=== PATIENT | female | born 1985 | race Two or more races ===

== ENCOUNTER 2022-07-25 10:03 | Emergency (ER) | payer MEDICAID ==
[~2022-07-25] VITALS: Ht 162.6 cm; Wt 98.8 kg
[2022-07-25 10:16] VITALS: BP 138/60
[2022-07-25 10:49] LABS: Basophils # (auto) 0 10 ^3/uL (0-0.2); Basophils % (auto) 0.6 % (0.0-2.0); Eosinophils # (auto) 0.1 10 ^3/uL (0-0.8); Eosinophils % (auto) 0.8 % (0.0-7.0); Hematocrit 42.1 % (36.0-46.0); Hemoglobin 13.8 g/dL (12.2-16.2); Lymphocytes # (auto) 2.4 10 ^3/uL (0.4-5.4); Lymphocytes % (auto) 31.1 % (10.0-50.0); Mean Corpuscular Hemoglobin 31.6 pg (28.0-32.0); Mean Corpuscular Hgb Conc. 32.9 g/dL (32.0-36.0); Mean Corpuscular Volume 96.1 fL (80.0-100.0); Monocytes # (auto) 0.5 10 ^3/uL (0-1.3); Monocytes % (auto) 6.6 % (0.0-12.0); Neutrophils # (auto) 4.7 10 ^3/uL (1.6-8.6); Neutrophils % (auto) 60.9 % (37.0-80.0); Red Blood Cells 4.38 10^6/uL (4.0-5.20); Red Cell Distribution Width 13.5 % (11.8-14.3); White Blood Cell 7.8 10^3/uL (4.4-10.8)
[2022-07-25 11:03] LABS: Albumin 3.6 g/dL (3.4-5.0); Calcium 8.4 mg/dL (8.5-10.1)
[2022-07-25 11:08] LABS: BUN/Creatinine Ratio 13.8; Bilirubin, Total 0.6 mg/dL (0.2-1.0); Total Protein 7.4 g/dL (6.4-8.2)
[2022-07-25 11:11] LABS: Urine Bacteria FEW /hpf (None Seen); Urine Blood TRACE /uL (Negative); Urine Specific Gravity 1.014 (1.001-1.035); Urine WBC <1 /hpf (0 - 5)
== END 2022-07-25 13:19 | disposition home or self-care (01) ==
LOC: ER 10:03
DX: R10.9 Unspecified abdominal pain (principal); Z87.442 Personal history of urinary calculi
CPT/HCPCS: 36415; 74176; 80053; 81001; 85025

== ENCOUNTER 2025-10-28 17:25 | Emergency (ER) | payer MEDICAID ==
[~2025-10-28] VITALS: Ht 162.6 cm; Wt 93.1 kg
[2025-10-28 17:28] VITALS: TEMP 97.6
--- NOTE | 2025-10-28 18:09 | ED.PDOC ---
History of Present Illness HPI Comments 40F presents to the ER w/ the c/c of RAM. Pt reports on cooking when she had a sharp burning sensation to the head for which she thought was the oil but when the pt sat down after cooking she had the same feeling. The pt states on having had felt N/ and about to "faint". Pt notes on also having had "gibberish speech" which has been on/off for "a while". Denies any symptoms at this time. Patient denies any CP, SOB, dizziness, numbness, weakness, tingling, fever, chills, or recent fall. Chief Complaint: Headache Time Seen by MD: 18:00 Reviewed Notes: Nurses Notes, Medications, Allergies Allergies: Coded Allergies: NO KNOWN ALLERGIES (Unverified , 07/25/22) Information Source: Patient Mode of Arrival: Ambulatory Severity: Moderate Timing: Came on: Gradually Duration: Since onset Prehospital treatment: None Past Medical History PAST MEDICAL HISTORY: Kidney Stones Surgical History: Denies all surgeries SIGNAL MECHANIC History: No Pertinent SIGNAL MECHANIC History Family History Family History: Reviewed,noncontributory to illness, Unknown Social History Smoker: Non-Smoker Alcohol: Denies ETOH Use Drugs: Denies Drug Use Lives In: Home Constitutional: reports: others (faint); denies: chills, diaphoresis, fatigue, fever, malaise, sweats, weakness EENTM: denies: blurred vision, double vision, ear bleeding, ear discharge, ear drainage, ear pain, ear ringing, eye pain, eye redness, hearing loss, mouth pain, mouth swelling, nasal discharge, nose bleeding, nose congestion, nose pain , photophobia, tearing, throat pain, throat swelling, voice changes, others Respiratory: denies: cough, hemoptysis, orthopnea, SOB at rest, shortness of breath, SOB with excertion, stridor, wheezing, others Cardiovascular: denies: chest pain, dizzy spells, diaphoresis, Dyspnea on exertion, edema, irregular heart beat, left arm pain, lightheadedness, palpitations, PND, syncope, others Gastrointestinal: reports: nausea; denies: abdomen distended, abdominal pain, blood streaked bowels, constipated, diarrhea, dysphagia, difficulty swallowing, hematemesis, melena, poor appetite, poor fluid intake, rectal bleeding, rectal pain, vomiting, others Genitourinary: denies: abnormal vagina bleeding, burning, dyspareunia, dysuria, flank pain, frequency, hematuria, incontinence, pain, , vagina discharge, urgency, others Neurological: reports: headache; denies: dizziness, fainting, left sided numbness, left sided weakness, numbness, paresthesia, pre-existing deficit, right sided numbness, right sided weakness, seizure, speech problems, tingling, tremors, weakness, others Musculoskeletal: denies: back pain, gout, joint pain, joint swelling, muscle pain, muscle stiffness, neck pain, others Integumetry: denies: bruises, change in color, change in hair/nails, dryness, laceration, lesions, lumps, rash, wounds, others Allergic/Immunocompromised: denies: Difficulty Healing, Frequent Infections, Hives, Itching, others Hematologic/Lymphatic: denies: anemia, blood clots, easy bleeding, easy bruising, swollen glands, others Endocrine: denies: excessive hunger, excessive sweating, excessive thirst, excessive urination, flushing, intolerance to cold, intolerance to heat, unexplained weight gain, unexplained weight loss, others Psychiatric: denies: anxiety, bipolar disorder, depression, hopeless, panic disorder, schizophrenia, sleepless, suicidal, others All Other Systems: Reviewed and Negative Physical Exam General Appearance: No Apparent Distress, Normal HEENT: Normal ENT Inspection, Pharynx Normal, TMs Normal Neck: Full Range of Motion, Non-Tender, Normal, Normal Inspection Respiratory: Chest Non-Tender, Lungs Clear, No Accessory Muscle Use, No Respiratory Distress, Normal Breath Sounds Cardiovascular: No Edema, No JVD, No Murmur, No Gallop, Normal Peripheral Pulses, Regular Rate/Rhythm Breast Exam: Deferred Gastrointestinal: No Organomegaly, Non Tender, No Pulsatile Mass, Normal Bowel Sounds, Soft Genitalia: Deferred Pelvic: Deferred Rectal: Deferred Extremities: No calf tenderness, Normal capillary refill, Normal inspection, Normal range of motion, Non-tender, No pedal edema Musculoskeletal : Apperance: Normal Neurologic: Alert, clinical research assistant II-XII nml as Tested, No Motor Deficits, Normal Affect, Normal Mood, No Sensory Deficits Cerebellar Function: Normal Reflexes: Normal Skin: Dry, Normal Color, Warm Lymphatic: No Adenopathy Was a procedure done? Was a procedure done?: No Differential Dx Considerations may include: CVA, TIA, tension headache, urinary tract infection, sepsis X-Ray, Labs, Meds, VS Vital Signs Date Time Temp Pulse Resp B/P (MAP) Pulse Ox O2 Delivery O2 Flow Rate FiO2 10/28/25 17:34 78 10/28/25 17:28 97.6 87 15 131/78 99 97.6 Lab Test 10/28/25 21:09 10/28/25 18:37 Range/Units Urine Color Pending Urine Clarity Pending Urine pH Pending Urine Specific [place] Pending Urine Protein Pending Urine Ketones Pending Urine Blood Pending Urine Nitrite Pending Urine Bilirubin Pending Urine Urobilinogen Pending Urine Leukocyte Esterase Pending Urine RBC Pending Urine Microscopic WBC Pending Urine Squamous Epithelial Cells Pending Urine Bacteria Pending Urine Glucose Pending White Blood Count 7.4 4.4-10.8 10^3/uL Red Blood Count 4.31 4.0-5.20 10^6/uL Hemoglobin 14.0 12.2-16.2 g/dL Hematocrit 41.4 36.0-46.0 % Mean Corpuscular Volume 96.1 80.0-100.0 fL Mean Corpuscular Hemoglobin 32.4 H 28.0-32.0 pg Mean Corpuscular Hemoglobin Concent 33.7 32.0-36.0 g/dL Red Cell Distribution Width 12.8 11.8-14.3 % Platelet Count 259 140-450 10^3/uL Mean Platelet Volume 8.9 6.9-10.8 fL Neutrophils (%) (Auto) 48.2 37.0-80.0 % Lymphocytes (%) (Auto) 43.3 10.0-50.0 % Monocytes (%) (Auto) 6.5 0.0-12.0 % Eosinophils (%) (Auto) 1.5 0.0-7.0 % Basophils (%) (Auto) 0.5 0.0-2.0 % Neutrophils # (Auto) 3.6 1.6-8.6 10 ^3/uL Lymphocytes # (Auto) 3.2 0.4-5.4 10 ^3/uL Monocytes # (Auto) 0.5 0-1.3 10 ^3/uL Eosinophils # (Auto) 0.1 0-0.8 10 ^3/uL Basophils # (Auto) 0 0-0.2 10 ^3/uL Nucleated Red Blood Cells 0.1 % Sodium Level 143 136-145 mmol/L Potassium Level 4.3 3.5-5.1 mmol/L Chloride Level 105 98-107 mmol/L Carbon Dioxide Level 27 20-31 mmol/L Anion Gap 11 5-15 Blood Urea Nitrogen 9 9-23 mg/dL Creatinine 0.85 0.550-1.02 mg/dL Glomerular Filtration Rate Calc 88 >90 mL/min BUN/Creatinine Ratio 10.6 10.0-20.0 Serum Glucose 86 74-106 mg/dL Calcium Level 9.7 8.7-10.4 mg/dL X-Ray, Labs, Meds, VS Comment Patient will be admitted for further evaluation by Neurology Acute onset of headache , slurred speech, inability to focus , while explaining testing and evaluation, patient states she can not understand anything I am saying.. Patient may benefit from MRI Patient hemodynamically stable Time of 1ST Reevaluation: 18:30 Reevaluation 1ST: Unchanged Patient Education/Counseling: Diagnosis, Treatment, Prognosis Family Education/Counseling: No Family Present SEPSIS Sepsis Screen Date sepsis recognized/suspect: Oct 28, 2025 Time Sepsis recognized/suspect: 1729 Recent Procedure: No On Antibiotic Therapy: No Respiratory Rate >20: No Heart Rate >90: No Temp<36 C (96.8 F) or >38.3 C: No SBP <90 or MAP <65 mmHG: No New Acute Mental Status Change: No Is the patient on CPAP, BIPAP,: No Physician Orders Head Without Contrast (10/28/25 18:19) Urinalysis (10/28/25 18:19) Ketorolac Injection (Toradol Injection) (10/28/25 21:45) Vital Signs Date Time Temp Pulse Resp B/P (MAP) Pulse Ox O2 Delivery O2 Flow Rate FiO2 10/28/25 17:34 78 10/28/25 17:28 97.6 87 15 131/78 99 97.6 Laboratory Tests Test 10/28/25 18:37 White Blood Count 7.4 10^3/uL (4.4-10.8) Departure 1 Departure Time of Disposition: 21:34 Impression: Primary Impression: Headache Qualified Codes: R51.9 - Headache, unspecified Additional Impressions: Dysphagia Qualified Codes: R13.10 - Dysphagia, unspecified Metabolic encephalopathy Disposition: 09 ADMITTED INPATIENT Condition: Stable Critical Care Note Critical Care Time?: No Stability Stability form required: No I personally scribed for ELIZA BUCKLEY ([facility]) on 10/28/25 at 18:09. Electronically submitted by Hira Benítez ([email or web address]). ELIZA BUCKLEY Oct 28, 2025 18:09
--- NOTE | 2025-10-28 18:32 | ECG ---
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
[2025-10-28 18:51] LABS: Hematocrit 41.4 % (36.0-46.0); Hemoglobin 14.0 g/dL (12.2-16.2); Mean Corpuscular Hemoglobin 32.4 pg (28.0-32.0); Mean Corpuscular Volume 96.1 fL (80.0-100.0); Nucleated Red Blood Cells % 0.1 %
[2025-10-28 18:59] LABS: Chloride 105 mmol/L (98-107); Potassium 4.3 mmol/L (3.5-5.1); Sodium 143 mmol/L (136-145)
[2025-10-28 19:00] LABS: Anion Gap 11 (5-15); Calcium 9.7 mg/dL (8.7-10.4); Carbon Dioxide 27 mmol/L (20-31)
[2025-10-28 19:05] LABS: BUN/Creatinine Ratio 10.6 (10.0-20.0); Blood Urea Nitrogen 9 mg/dL (9-23); Glucose 86 mg/dL (74-106)
--- NOTE | 2025-10-28 19:14 | DVH ---
EXAM: CT HEAD WITHOUT CONTRAST INDICATION: berg TECHNIQUE:: CT images of the head were obtained without administration of IV contrast. CT scans at this facility use dose modulation, iterative reconstruction, and/or weight based dosing when appropriate to reduce radiation dose to as low as reasonably achievable. COMPARISON: None FINDINGS: PARENCHYMA: No acute hemorrhage. There is no mass effect, midline shift, or herniation. There is preservation of the espinoza white differentiation. VENTRICLES: No hydrocephalus. EXTRA-AXIAL SPACES: No extra-axial fluid collections. OTHER: The bony structures are intact. Visualized portions of the paranasal sinuses and mastoid air cells are clear. IMPRESSION: 1. No CT evidence of an acute intracranial abnormality.
[2025-10-28 21:40] LABS: Urine Protein, UAD Negative (Negative)
[2025-10-28] MEDS: KETOROLAC TROMETH 30 MG/ML 1ML VIAL IM ONE (21:59)
[2025-10-28 22:07] VITALS: BP 122/83; PULSE 71; RESP 16; O2SAT 99
[2025-10-29] MEDS ORDERED: ENOXAPARIN SOD 40 MG/0.4 ML SYRINGE SC SCH (10:00)
== END 2025-10-29 01:32 | disposition left against medical advice (07) ==
LOC: ER 17:25 → UNDOADMIN 23:40 → OVERFLOW 23:40 → ER 10-29 01:32
DX: G93.41 Metabolic encephalopathy (principal); R13.10 Dysphagia, unspecified; R51.9 Headache, unspecified; Z87.440 Personal history of urinary (tract) infections
CPT/HCPCS: 36415; 70450; 80048; 81001; 82947; 85025; 93005; 96372; 99285; J1885; G0378

== ENCOUNTER 2025-10-29 10:28 | Emergency (ER) | payer MEDICAID ==
[~2025-10-29] VITALS: Ht 162.6 cm; Wt 91.7 kg
[2025-10-29 10:29] VITALS: BP 140/91; PULSE 84; RESP 18; TEMP 97.6; O2SAT 84
--- NOTE | 2025-10-29 11:22 | ED.PDOC ---
History of Present Illness HPI Comments This is a 40-year-old female with past medical history of subclinical hypothyroidism, kidney stones and possible fibromyalgia who came to the ED with the chief complaint of headache since 4 days. She mentions she has been having right-sided headache, described as a burning sensation, radiating to bilateral shoulder blades and upper back. 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 It is also associated with nausea and dizziness. The patient also mentions episodes where people around her mentioned her speech was slow and gibberish. She has also had difficulty sleeping, menstrual irregularities and changes in her skin for the last 4-5 months. The patient was recently diagnosed with subclinical hypothyroidism and was started on Zepbound, which has helped her lose almost 40 lbs.mPt was treated at the ER with fluids, given a CT scan, and advised to be admitted. Pt left hospital and returned this morning to the ER after feeling the same burning sensation at 4:59am this morning. Pt currently denies associated symptoms of dizziness, nausea, vomiting, or diarrhea. Pt vitals are otherwise stable and denies any other symptoms at this time. 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 periods) Family History Family History: Reviewed,noncontributory to illness, Unknown Social History Smoker: Non-Smoker Alcohol: Denies ETOH Use Drugs: Denies Drug Use Lives In: Home Constitutional: reports: fatigue, malaise, weakness Genitourinary: reports: others (irregular periods) Neurological: reports: headache Musculoskeletal: reports: back pain, neck pain Endocrine: reports: intolerance to cold Physical Exam General Appearance: Normal HEENT: Normal ENT Inspection Neck: Normal Inspection Respiratory: Normal Breath Sounds Cardiovascular: No Edema, No Murmur, Normal Peripheral Pulses Breast Exam: Normal Gastrointestinal: Normal Bowel Sounds Genitalia: Deferred Pelvic: Deferred Rectal: Deferred Extremities: Normal inspection, Normal range of motion Neurologic: Headache, No Motor Deficits, Normal Affect, Normal Mood, No Sensory Deficits Cerebellar Function: Normal Reflexes: Normal Skin: Normal Color Lymphatic: No Adenopathy Was a procedure done? Was a procedure done?: No Differential Dx Considerations may include: Hypothyroidism, TIA, fibromyalgia, migraine X-Ray, Labs, Meds, VS Vital Signs Date Time Temp Pulse Resp B/P (MAP) Pulse Ox O2 Delivery O2 Flow Rate FiO2 10/29/25 10:29 97.6 84 18 140/91 84 97.6 Time of 1ST Reevaluation: 11:30 Reevaluation 1ST: Unchanged Patient Education/Counseling: Diagnosis, Treatment Family Education/Counseling: No Family Present Comments Patient is being admitted to rule out hypothyroidism, TIA , migraine or fibromyalgia. SEPSIS Sepsis Screen Date sepsis recognized/suspect: Oct 29, 2025 Time Sepsis recognized/suspect: 1031 Recent Procedure: No On Antibiotic Therapy: No Respiratory Rate >20: No Heart Rate >90: No Temp<36 C (96.8 F) or >38.3 C: No SBP <90 or MAP <65 mmHG: No New Acute Mental Status Change: No Is the patient on CPAP, BIPAP,: No Physician Orders Complete Blood Count (10/29/25 11:22) Basic Metabolic Panel (10/29/25 11:22) Urinalysis (10/29/25 11:23) Drug Screen (10/29/25 11:23) Vital Signs Date Time Temp Pulse Resp B/P (MAP) Pulse Ox O2 Delivery O2 Flow Rate FiO2 10/29/25 10:29 97.6 84 18 140/91 84 97.6 Departure 1 Departure Time of Disposition: 11:30 Impression: Primary Impression: Headache Disposition: 09 ADMITTED INPATIENT Admit to: Med Surg Condition: Stable Critical Care Note Critical Care Time?: No Stability Stability form required: DENISE Rider RESIDENT Oct 29, 2025 11:22
--- NOTE | 2025-10-29 11:27 | ED.PDOC ---
History of Present Illness HPI Comments 40 year old female with PMHx of fibromyalgia and kidney stones presents to the emergency department for chief complaint of headache that began on Sunday. Pt states that they were at home cooking when she suddenly felt a burning sensation on the top of her head. Pt was also having difficulty falling asleep, feeling nauseous, dizzy, and as if she was going to loose consciousness. Pt has a history of a severe fall in 2016 that led to her hospitalization due to sciatic nerve pain that she has been managing since. Pt was admitted to the ER on Sunday10/28/2025 after she began having memory and speech processing issues. Pt was treated at the ER with fluids, given a CT scan, and advised to be admitted. Pt left hospital and returned this morning to the ER after feeling the same burning sensation at 4:59am this morning. In the ED, Pt described having trouble comprehending speech, forming sentences, feels fatigue, and has a persistent non-radiating headache. Pt currently denies associated symptoms of dizziness, nausea, vomiting, or diarrhea. Pt vitals are otherwise stable and denies any other symptoms at this time. Chief Complaint: Headache Time Seen by MD: 11:25 Allergies: Coded Allergies: NO KNOWN ALLERGIES (Unverified , 07/25/22) Mode of Arrival: Ambulatory Severity: Mild Timing: Days Duration: Since onset, Intermittent Prehospital treatment: None Past Medical History PAST MEDICAL HISTORY: Kidney Stones Surgical History: Denies all surgeries SPOUT WORKER History: No Pertinent SPOUT WORKER History Family History Family History: Reviewed,noncontributory to illness, Unknown Social History Smoker: Non-Smoker Alcohol: Denies ETOH Use Drugs: Denies Drug Use Lives In: Home X-Ray, Labs, Meds, VS Vital Signs Date Time Temp Pulse Resp B/P (MAP) Pulse Ox O2 Delivery O2 Flow Rate FiO2 10/29/25 10:29 97.6 84 18 140/91 84 97.6 Time of 1ST Reevaluation: 12:05 Reevaluation 1ST: Unchanged Patient Education/Counseling: Diagnosis, Treatment Family Education/Counseling: No Family Present SEPSIS Sepsis Screen Date sepsis recognized/suspect: Oct 29, 2025 Time Sepsis recognized/suspect: 1031 Recent Procedure: No On Antibiotic Therapy: No Respiratory Rate >20: No Heart Rate >90: No Temp<36 C (96.8 F) or >38.3 C: No SBP <90 or MAP <65 mmHG: No New Acute Mental Status Change: No Is the patient on CPAP, BIPAP,: No Physician Orders Complete Blood Count (10/29/25 11:22) Basic Metabolic Panel (10/29/25 11:22) Urinalysis (10/29/25 11:23) Drug Screen (10/29/25 11:23) Vital Signs Date Time Temp Pulse Resp B/P (MAP) Pulse Ox O2 Delivery O2 Flow Rate FiO2 10/29/25 10:29 97.6 84 18 140/91 84 97.6 I personally scribed for FADI RICHARDS MD ([email or web address]) on 10/29/25 at 11:27. Electronically submitted by Shayy David ([email or web address]). I personally scribed for FADI RICHARDS MD ([email or web address]) on 10/29/25 at 11:29. Electronically submitted by Shayy David ([email or web address]). FADI RICHARDS MD Oct 29, 2025 11:27
[2025-10-29 11:54] LABS: Hematocrit 43.1 % (36.0-46.0); Hemoglobin 14.4 g/dL (12.2-16.2); Mean Corpuscular Hemoglobin 32.1 pg (28.0-32.0); Mean Corpuscular Volume 95.9 fL (80.0-100.0); Nucleated Red Blood Cells % 0.2 %
[2025-10-29 11:57] LABS: Chloride 106 mmol/L (98-107); Potassium 3.8 mmol/L (3.5-5.1); Sodium 140 mmol/L (136-145)
[2025-10-29 11:58] LABS: Anion Gap 9 (5-15); Carbon Dioxide 25 mmol/L (20-31)
[2025-10-29 11:59] LABS: Calcium 9.4 mg/dL (8.7-10.4)
[2025-10-29 12:03] LABS: BUN/Creatinine Ratio 10.3 (10.0-20.0); Glucose 91 mg/dL (74-106)
[2025-10-29 12:05] LABS: Blood Urea Nitrogen 8 mg/dL (9-23)
== END 2025-10-29 12:26 | disposition left against medical advice (07) ==
LOC: ER 10:28
DX: R51.9 Headache, unspecified (principal); Z79.899 Other long term (current) drug therapy
CPT/HCPCS: 36415; 80048; 85025